=== PATIENT | female | born 1995 | race Caucasian/White ===

== ENCOUNTER 2023-12-10 23:49 | Emergency (ER) | payer BC ==
[2023-12-11 01:30] LABS: Absolute Basophils 0.1 K/uL (0-0.5); Absolute Eosinophils 0.3 K/uL (0-0.5); Absolute Lymphocytes (CBC) 3.1 K/uL (0.7-4.9); Absolute Monocytes 0.6 K/uL (0.1-1.3); Absolute Neutrophil 6.2 K/uL (1.8-8.0); Basophils % 0.9 % (0-1.3); Eosinophils % 2.6 % (0-4.4); Hematocrit 37.8 % (36.0-45.0); Hemoglobin 12.6 g/dL (12.0-15.0); Lymphocytes % 30.5 % (15.3-44.8); MCH 28.2 pg (27.0-35.0); MCHC 33.4 g/dL (32.0-36.0); MCV 84.3 fL (80-100); Monocytes % 5.6 % (3.3-12.3); Neutrophils % 60.4 % (41.7-73.7); Nucleated Red Blood Cells % 0.1 % (0-0); Platelets 383 thou/uL (152-406); RBC Red Blood Cell Count 4.48 M/uL (3.86-4.86); Red Cell Distribution Width 13.3 % (12.1-15.2)
[2023-12-11 01:50] LABS: ALT/SGPT 32 U/L (13-56); AST/SGOT 12 U/L (15-37); Albumin 3.1 g/dL (3.4-5.0); Albumin/Globulin Ratio 0.8 (1.1-1.8); Alkaline Phosphatase 96 U/L (45-117); Anion Gap 8.5 mEq/L (5.0-15.0); BUN Blood Urea Nitrogen 8 mg/dL (7-18); Bicarbonate 26 mEq/L (21-32); Bilirubin Direct < 0.2 mg/dL (0-0.2); Bilirubin Total 0.2 mg/dL (0.2-1.0); Globulin 3.8 g/dL (2.3-3.5); Glomerular Filtration Rate 116 ml/min (=/>90); Glucose Level 106 mg/dL (74-106); Magnesium 2.2 mg/dL (1.6-2.4); NT PRO-BNP 48 pg/mL (<125); Potassium 3.5 mEq/L (3.5-5.1); Protein, Total 6.9 g/dL (6.4-8.2); Sodium Level 139 mEq/L (136-145); Troponin High Sensitivity 5.2 pg/mL (<58.9)
--- NOTE | 2023-12-11 01:56 | ER ---
Nurse's Notes [facility] Name: Annie Ortiz Age: 28 yrs Sex: Female : 1995 Arrival Date: 12/10/2023 Time: 23:49 Bed 4 Private MD: Diagnosis: Bilateral lower extremity edema Presentation: 12/10 00:19 Chief complaint: Patient states: My legs are swelling. I noticed it a couple of days vc1 ago but tonight it is worse. Coronavirus screen: Client denies travel out of the [place] in the last 14 days. At this time, the client does not indicate any symptoms associated with coronavirus-19. Ebola Screen: Patient negative for fever greater than or equal to 101.5 degrees Fahrenheit, and additional compatible Ebola Virus Disease symptoms Patient denies exposure to infectious person. Patient denies travel to an Ebola-affected area in the 21 days before illness onset. No symptoms or risks identified at this time. Initial Sepsis Screen: Does the patient meet any 2 criteria? No. Patient's initial sepsis screen is negative. Does the patient have a suspected source of infection? No. Patient's initial sepsis screen is negative. Risk Assessment: Do you want to hurt yourself or someone else? Patient reports no desire to harm self or others. Onset of symptoms is unknown. 00:19 Method Of Arrival: Ambulatory vc1 00:19 Acuity: WENDI 3 vc1 Historical: - Allergies: 00:29 No Known Allergies; vc1 - Home Meds: 00:29 losartan potassium (bulk) [Active]; citalopram 20 mg tablet [Active]; vc1 - PMHx: 00:29 Hypertensive disorder; vc1 - PSHx: 00:29 None; vc1 - Immunization history:: Client reports receiving the 2nd dose of the Covid vaccine. - Infectious Disease History:: Denies. - Social history:: Smoking status: Patient denies any tobacco usage or history of. - Family history:: not pertinent. Screenin:24 [facility] ED Fall Risk Assessment (Adult) History of falling in the last 3 months, jj7 including since admission No falls in past 3 months (0 pts) Confusion or Disorientation No (0 pts) Intoxicated or Sedated No (0 pts) Impaired Gait No (0 pts) Mobility Assist Device Used No (0 pt) Altered Elimination No (0 pt) Score/Fall Risk Level 0 - 2 = Low Risk Oriented to surroundings, Maintained a safe environment, Educated pt \T\ family on fall prevention, incl call for assistance when getting out of bed, Assessed \T\ reinforced patient's understanding of fall precautions. Abuse screen: Denies threats or abuse. Nutritional screening: No deficits noted. Nutritional screening: No deficits noted. Tuberculosis screening: No symptoms or risk factors identified. Assessment: 00:24 General: Appears in no apparent distress. comfortable, Behavior is calm, cooperative, jj7 appropriate for age. Pain: Denies pain. Cardiovascular: Reports SWELLING TO BILAT LOWER LEGS. Vital Signs: 00:19 BP 165 / 102; Pulse 108; Resp 18; Temp 98.5; Pulse Ox 100% ; Weight 133.36 kg; Height 5 vc1 ft. 4 in. ; Pain 0/10; 01:55 BP 153 / 95; Pulse 75; Resp 17; Temp 98.7; Pulse Ox 100% ; jj7 00:19 Body Mass Index 50.46 (133.36 kg, 162.56 cm) vc1 00:19 Pain Scale: Adult vc1 ED Course: 00:01 Patient arrived in ED. mr 00:01 Angelo Miles MD is Attending Physician. rt 00:17 Francheska Martinez, MABEL is Primary Nurse. jj7 00:24 Patient has correct armband on for positive identification. Bed in low position. Call jj7 light in reach. Adult w/ patient. Provided Education on: USE OF CALL CURTIS. Warm blanket given. 00:24 Arm band placed on right wrist. jj7 00:28 Triage completed. vc1 01:20 Extrem Venous W Compression Jassi US In Process Unspecified. EDMS 01:25 Inserted saline lock: 22 gauge in left antecubital area, using aseptic technique. Blood vc1 collected. Flushed with 10 mL NS. 01:58 No provider procedures requiring assistance completed. IV discontinued, intact, jj7 bleeding controlled, No redness/swelling at site. Pressure dressing applied. Administered Medications: No medications were administered Medication: 00:24 VIS not applicable for this client. jj7 Outcome: 01:55 Discharge ordered by . rt 01:58 Discharged to home ambulatory, with significant other, jj7 01:58 Condition: good 01:58 Discharge instructions given to patient, Instructed on discharge instructions, Demonstrated understanding of instructions, 02:10 Patient left the ED. jj7 Signatures: Dispatcher [employer] Hawa Singletary, Tru Reg Yvette Pickering RN RN vc1 Francheska Martinez RN RN jj7 Angelo Miles MD MD rt
--- NOTE | 2023-12-11 01:56 | EDPHYS ---
Physician Documentation [facility] Name: Annie Ortiz Age: 28 yrs Sex: Female : 1995 Arrival Date: 12/10/2023 Time: 23:49 Bed 4 Private MD: ED Physician Angelo Miles HPI: 12/10 01:15 This 28 yrs old Female presents to ER via Ambulatory with complaints of Leg Swelling. rt 01:15 Patient presents to the ED with bilateral lower extremity swelling for about 2 days. rt States that is somewhat worse on the right compared to the left. Denies pain, redness. Denies other acute complaints, symptoms are mild in severity, no other aggravating or alleviating factors.. Historical: - Allergies: 00:29 No Known Allergies; vc1 - Home Meds: 00:29 losartan potassium (bulk) [Active]; citalopram 20 mg tablet [Active]; vc1 - PMHx: 00:29 Hypertensive disorder; vc1 - PSHx: 00:29 None; vc1 - Immunization history:: Client reports receiving the 2nd dose of the Covid vaccine. - Infectious Disease History:: Denies. - Social history:: Smoking status: Patient denies any tobacco usage or history of. - Family history:: not pertinent. ROS: 01:15 Constitutional: Negative for fever, chills, and weight loss, Respiratory: Negative for rt shortness of breath, cough, wheezing, and pleuritic chest pain, Abdomen/GI: Negative for abdominal pain, nausea, vomiting, diarrhea, and constipation, Skin: Negative for injury, rash, and discoloration, 01:15 Cardiovascular: Positive for edema, Negative for chest pain, 01:15 MS/extremity: Positive for swelling, Negative for pain, Exam: 01:15 Constitutional: This is a well developed, well nourished patient who is awake, alert, rt and in no acute distress. Head/Face: Normocephalic, atraumatic. Chest/axilla: Normal chest wall appearance and motion. Nontender with no deformity. No lesions are appreciated. Cardiovascular: Regular rate and rhythm with a normal S1 and S2. No gallops, murmurs, or rubs. Normal PMI, no JVD. No pulse deficits. Respiratory: Lungs have equal breath sounds bilaterally, clear to auscultation and percussion. No rales, rhonchi or wheezes noted. No increased work of breathing, no retractions or nasal flaring. Abdomen/GI: Soft, non-tender, with normal bowel sounds. No distension or tympany. No guarding or rebound. No evidence of tenderness throughout. Neuro: Awake and alert, GCS 15, oriented to person, place, time, and situation. Cranial nerves II-XII grossly intact. Motor strength 5/5 in all extremities. Sensory grossly intact. Cerebellar exam normal. Normal gait. 01:15 ECG was reviewed by the Attending Physician. 01:15 Musculoskeletal/extremity: Trace edema without erythema, focal areas of tenderness. Vital Signs: 00:19 BP 165 / 102; Pulse 108; Resp 18; Temp 98.5; Pulse Ox 100% ; Weight 133.36 kg; Height 5 vc1 ft. 4 in. ; Pain 0/10; 01:55 BP 153 / 95; Pulse 75; Resp 17; Temp 98.7; Pulse Ox 100% ; jj7 00:19 Body Mass Index 50.46 (133.36 kg, 162.56 cm) vc1 00:19 Pain Scale: Adult vc1 MDM: 00:21 Patient medically screened. rt 02:20 Differential Diagnosis Edema, renal failure, DVT, CHF. Data reviewed: vital signs, rt nurses notes, lab test result(s), EKG, radiologic studies. Test considered but Not performed: X-ray: No shortness of breath, chest x-ray is not indicated. Care significantly affected by the following chronic conditions: Hypertension. Counseling: I had a detailed discussion with the patient and/or guardian regarding the historical points, exam findings, and any diagnostic results supporting the discharge/admit diagnosis, lab results, radiology results, the need for outpatient follow up, to return to the emergency department if symptoms worsen or persist or if there are any questions or concerns that arise at home. 12/10 00:28 Order name: Basic Metabolic Panel; Complete Time: rt 12/10 00:28 Order name: CBC with Diff; Complete Time: rt 12/10 00:28 Order name: LFT's; Complete Time: rt 12/10 00:28 Order name: Magnesium; Complete Time: rt 12/10 00:28 Order name: NT PRO-BNP; Complete Time: 01:52 rt 12/10 00:28 Order name: Troponin HS; Complete Time: :52 rt 12/10 00:28 Order name: Test, Serum; Complete Time: : rt 12/10 00:28 Order name: Extrem Venous W Compression Jassi US rt 12/10 00:28 Order name: Cardiac monitoring; Complete Time: 01:53 rt 12/10 00:28 Order name: EKG - Nurse/Tech; Complete Time: 00:46 rt 12/10 00:28 Order name: IV Saline Lock; Complete Time: :50 rt 12/10 00:28 Order name: Labs collected and sent; Complete Time: :50 rt 12/10 00:28 Order name: O2 Per Protocol; Complete Time: rt 12/10 00:28 Order name: O2 Sat Monitoring; Complete Time: :50 rt EC: Rate is 93 beats/min. Rhythm is regular, Normal Sinus Rhythm with No ectopy. QRS [place] rt is Normal. ND interval is normal. QRS interval is normal. QT interval is normal. No Q waves. T waves are Normal. No ST changes noted. Interpreted by me. Administered Medications: No medications were administered Disposition Summary: 12/11/23 01:55 Discharge Ordered Notes: Location: Home rt Problem: new rt Symptoms: are unchanged rt Condition: Stable rt Diagnosis - Bilateral lower extremity edema rt Followup: rt - With: Private Physician - When: 2 - 3 days - Reason: Discharge Instructions: - Discharge Summary Sheet rt - Edema rt Forms: - Medication Reconciliation Form rt - Antibiotic Education rt - Prescription Opioid Use rt - Patient Portal Instructions rt - Leadership Thank You Letter rt Signatures: Dispatcher [employer] EDYvette Alaniz RN RN vc1 Angelo Miles MD MD rt Corrections: (The following items were deleted from the chart) 00:29 00:29 Extrem Venous W Compression [email or web address] ordered. EDMS EDMS
[2023-12-11 02:22] VITALS: O2SAT 100
[2023-12-11 02:34] VITALS: BP 153/95; TEMP 98.7
--- NOTE | 2023-12-12 12:51 | EKG ---
Test Date: 2023-12-11 Test Time: 00:43:38 Hypnotherapist: MEASUREMENT RESULTS: Intervals: Rate: 93 DC: 186 QRSD: 80 QT: 362 QTc: 450 [place]: P: 59 DC: 186 QRS: 32 T: 45 INTERPRETIVE STATEMENTS: Normal sinus rhythm Normal ECG No previous ECG available for comparison Electronically Signed On 12-12-23 12:47:47 CDT by David Vo
--- NOTE | 2023-12-12 14:59 | RAD REPORT ---
PROCEDURE: US Duplex Bilateral Lower Extremities Veins CLINICAL INDICATION: The patient is 28 years old and is Female; SWELLING TECHNIQUE: Real-time duplex ultrasound scan of the bilateral lower extremity veins integrating B-mode two-dimens ional vascular structure, Doppler spectral analysis, color flow Doppler imaging and compression. COMPARISON: None. FINDINGS: RIGHT DEEP VEINS: Unremarkable. No DVT in the right common femoral, femoral, proximal deep femoral or popliteal veins. The veins demonstrate normal color flow, are normally compressible, with normal phasic flow and/or augmen tation response. RIGHT SUPERFICIAL VEINS: Unremarkable. No thrombus in the visualized right great saphenous vein. LEFT DEEP VEINS: Unremarkable. No DVT in the left common femoral, femoral, proximal deep femoral or p opliteal veins. The veins demonstrate normal color flow, are normally compressible, with normal phasic flow and/or augmen tation response. LEFT SUPERFICIAL VEINS: Unremarkable. No thrombus in the visualized left great saphenous vein. SOFT TISSUES: No acute findings. No popliteal cyst. IMPRESSION: No bilateral lower extremity DVT. Electronically signed by: Bridger Kilpatrick DO 12/11/2023 01:28 AM CDT Transcribed Date/Time: 12/12/2023 2:59 PM
== END 2023-12-11 02:10 | disposition home or self-care (01) ==
LOC: ER 23:49
DX: R60.9 Edema, unspecified (principal); I10 Essential (primary) hypertension
CPT/HCPCS: 36415; 80048; 80076; 83735; 83880; 84484; 84703; 85025; 93005; 93970; 99284